=== PATIENT | female | born 1980 | race Caucasian/White ===

== ENCOUNTER 2021-10-19 13:16 | Outpatient (CLI) | payer SELFPAY ==
--- NOTE | 2021-10-19 | ECG_ITS ---
Measurements Intervals [place] Rate: 82 P: 72 MN: 148 QRS: 5 QRSD: 81 T: 33 QT: 338 QTc: 395 Interpretive Statements SINUS RHYTHM WITH SINUS ARRHYTHMIA RSR' IN V1 OR V2, PROBABLY NORMAL VARIANT BORDERLINE ECG Electronically Signed On 10-19-2021 15:33:08 CDT by Neal Martinez D.O.
[2021-10-19 17:26] LABS: Albumin Level 4.3 g/dL (3.5-5.1)
[2021-10-19 17:38] LABS: Prealbumin 23.9 mg/dL (17.6-36.0)
[2021-10-19 17:42] LABS: Iron 100 ug/dL (37-170)
== END 2021-10-19 13:17 | disposition home or self-care (01) ==
PROVIDERS: Visit Provider Surgery Plastic and Reconstructive Surgery
DX: Z01.818 Encounter for other preprocedural examination (principal); Z98.84 Bariatric surgery status; R94.31 Abnormal electrocardiogram [ECG] [EKG]
CPT/HCPCS: 36415; 82040; 83540; 84134; 93005

== ENCOUNTER 2022-02-08 00:57 | Day surgery (SDC) | payer OTHER, SELFPAY ==
[2022-02-02 10:24] VITALS: BMI 25.9
--- NOTE | 2022-02-02 10:29 | PC.NURSE ---
Report to the Outpatient Waiting Room, entrance under the green pavilion located off [facility], at time 0730 on date 02/08/22. Planned Procedure Time: 0930. Time changes happen often and if your time is changed the preop area will call you the afternoon before. - You and your visitor will be asked to self-screen and do not enter if you have any COVID symptoms. - We encourage only one visitor and NO visitors under age 16 are allowed at this time. Your visitor will receive communication by the phone number that is given day of service. - The patient visitor is requested to social distance or may leave the building when not with patient due to restrictions. - A mask is OPTIONAL within the hospital. Patients may have clear liquids (water, carbonated beverages, clear teas, apple juice) until 3 hours prior to surgery with a maximum of 20 ounces. - No food from midnight until time of surgery Take the following medications with a SIP of water the morning of surgery: LEVOTHYROXINE Medications to discontinue per physician: VITAMINS Date to take last dose: 02/04/22 Please no make-up, nail ku[place]i, hairspray, perfume, deodorant, or body powder the day of surgery. No jewelry (including any body piercings) or valuables the day of surgery, leave them at home. Please take a shower or bath the night before, or the morning of, surgery with an antibacterial soap. Wear comfortable, loose fitting clothing. - Jewelry must be removed prior to entering the operating room. Rings and piercings that are not removed may be cut off. - The hospital will not accept responsibility for valuables. - Please leave all valuables, including medications, at home the day of surgery. If you are going home after surgery, a licensed auto transport driver must drive you home. - NO public transportation without another adult. - We recommend that an adult stay with you for 24 hours following discharge. - We also recommend that you do not drive, make important decision, drink alcoholic beverages, or take any drugs that were not prescribed by your health care provider for at least 24 hours after your discharge time. Follow any additional instructions given to you from your surgeon. If you or anyone in your household have experienced Covid symptoms in the past week, please notify your surgeon or the nurse liaison at the phone number below for possible testing. Telephone instructions given to PT - AMALIA NOE and asked if any additional questions and then verbalized understanding. Patient advised to call surgeon office or pre surgery nurse liaison [phone] if any additional questions.
[2022-02-08] VITALS (10 sets, daily range): BP systolic 102–129; BP diastolic 55–89; PULSE 65–100; RESP 12–18; TEMP 36–37.2; O2SAT 96–100; BMI 27.1
[2022-02-08 07:55] LABS: Urine Cotinine NEGATIVE
[2022-02-08] MEDS: LACTATED RINGERS 1,000 ML 30 ML IV CONT ×2 (08:35→15:29)
[2022-02-08 08:52] LABS: Hematocrit 37.8 % (37.0-47.0); Hemoglobin 12.3 g/dL (12.0-15.0)
--- NOTE | 2022-02-08 09:27 | W.PM.PROC2 ---
Procedure Note - Detailed Date of Procedure 02/08/22 Pre-op Diagnosis skin laxity, breast ptosis Post-op Diagnosis Same Procedure Performed 1. Bilateral mastopexy 2. Progressive tension abdominoplasty 3. Bilateral medial thigh lift Surgeon Jonathan Caceres MD Anesthesia General Findings Breast: Inverted T, Superior pedicle mastopexy Abdomen Tissue removed 1,094 grams Thighs Lipoaspirate 1,500 cc Description of Procedure They are here today for the above. Previously and again today the risks, benefits, alternatives were discussed in extensive detail. I wanted them to be very realistic about the risks involved as well as expectations. We discussed aftercare and what to monitor for. I was very upfront about the risks of wound breakdown leading to loss of skin, open wounds, and need for additional procedures with permanent abdominal deformity. We discussed DVT/PE risks and management. Made sure answered all of their questions to their satisfaction today and consent was obtained. Marked in the preoperative holding area with their verification. The patient was taken to the operating room placed supine on the operating table. Anesthesia was provided by anesthesiology. A Raphael catheter was started. A surgical time-out was taken. She was prepped and draped in a standard sterile fashion. Thighs Stab incisions were made and I tumesced with a tumescent solution. Once adequate time for hemostasis suction lipectomy was completed based on safe technique with a 5 mm basket cannula. I completely de-fatted the central portion for planned resection and using a strip avulsion technique in a proximal to distal cut as you go fashion the intervening tissue was removed with a 10 blade and stapled into place. I closed using 2-0 Stratafix followed by 3-0 Stratafix in a running subcuticular 4-0 Monocryl. Tissue glue was placed. Breast Eleven blade was utilized to make a stab incision and infiltrated with low volume tumescent solution. The breast was tailor tacked into place. I tailor tacked the breast into position. Placed her in a sitting position. Verified the nipple-areolar location based on preoperative planning as well as intraoperative observations and measurements in full agreement. She was placed supine. I de-epithelialized the pedicle. I then de-epithelialized the inferior breast tissue to create an autoaugmentation flap based on intercostal hand box folder. I elevated medial and lateral tissue flaps as well for planned closure. The autoaugmentation flap was sutured to the chest wall with 2-0 PDS. I closed along the IMF with 2-0 Stratafix. Along the vertical with 2-0 PDS. I closed around the Emanuel with 3-0 strata fix. 3-0 Monocryl along the vertical. 3-0 Stratafix along the IMF. I finally closed everything with running subcuticular 4-0 Monocryl and tissue glue. Abdomen I placed the patient in a flexed position to verify the upper and lower markings would reach. I then placed supine. A thorough abdominal examination was completed. Stab incisions were made and tumescent solution infiltrated. A 5mm basket cannula liposuction basket cannula was utilized to provide discontinuous undermining. A 10 blade was used to make the upper incision. I continued dissection down to the level of fascia. Elevated just what was necessary for repair of the diastasis. I then again flexed the bed to verify the upper skin flap would reach the lower markings without tension. Once verified I placed her supine once again and a 10 blade used to make the lower incision. I elevated up to level the umbilicus and left the umbilicus intact on a well-vascularized stalk. The intervening tissue was removed. A 2 mm blunt cannula with 0.5% bupivicaine was injected deep to the fascia bilaterally. I plicated the diastasis recti using 0 PDO stratafix barbed suture. This was in 2 separate layers using 2 separate sutures as well. I repaired around the umbilic
--- NOTE | 2022-02-08 09:40 | WPDHPUPDATE1 ---
History and Physical Update Update Date/Time: 02/08/22 09:40 History and Physical has been reviewed, including an updated exam of the patient. There are NO changes in the patient's condition. Risks, benefits, and alternatives have been discussed and questions answered. Patient agrees to proceed with procedure.
[2022-02-08] MEDS: ceFAZolin 2 GM/D5W 50 ML 2 GM/50 ML BAG IVPB (09:45)
[2022-02-08] MEDS: TRANEXAMIC ACID 1,000MG/ISO100 1,000 MG/100 ML BAG 200 MG IVPB (09:51)
[2022-02-08] MEDS: BUPIVACAINE/EPINEPHRINE 0.25% 50 ML VIAL 60 ML INFILTRATE (11:15)
[2022-02-08] MEDS: ceFAZolin SODIUM 1 GM VIAL IV PUSH (13:43)
[2022-02-08] MEDS: LACTATED RINGERS IRRIG 1,000 ML, LIDOCAINE HCL 1% LOCAL INJ 50 ML, EPINEPHrine HCL INJ ... INFILTRATE (14:50)
[2022-02-08] MEDS: fentaNYL CITRATE INJ (*CRX) 100 MCG/2 ML VIAL 25 MCG IV PUSH ×4 (15:47→16:36)
--- NOTE | 2022-02-08 17:00 | OBPPTRN ---
1649 Patient transferred to post room #288 via bed. Support person present. Oriented to unit, room, information board, admission packet and security measures. Patient verbalizes understanding.
[2022-02-08] MEDS: ONDANSETRON INJ 4 MG/2 ML VIAL IV PUSH (17:11)
[2022-02-08] MEDS: LACTATED RINGERS 1,000 ML 125 ML IV CONT (17:11)
[2022-02-08] MEDS: ENOXAPARIN 40 MG/0.4 ML SYRINGE SUB-Q (19:49)
[2022-02-08] MEDS: oxyCODONE/ACETAMINOPHEN (*CRX) 5-325 MG TABLET PO ×2 (19:49→23:37)
[2022-02-08] MEDS: DOCUSATE SODIUM 100 MG CAPSULE PO (19:50)
[2022-02-08] MEDS: GABAPENTIN 300 MG CAPSULE PO (19:50)
[2022-02-08] MEDS: carisoprodoL (*CRX) 350 MG TABLET PO (19:50)
[2022-02-09] MEDS: carisoprodoL (*CRX) 350 MG TABLET PO ×2 (01:20→07:08)
[2022-02-09 04:30] VITALS: BP 98/58; PULSE 105; RESP 18; TEMP 37.1; O2SAT 99
[2022-02-09] MEDS: MORPHINE SULFATE (*CRX) 2 MG/ML INJ IV PUSH (04:49)
[2022-02-09] MEDS: ONDANSETRON INJ 4 MG/2 ML VIAL IV PUSH (04:54)
--- NOTE | 2022-02-09 06:42 | WPDPN ---
Progress Note: A&P Assessment and Plan (1) Skin laxity: Code(s): L57.4 - Cutis laxa senilis Status: Acute Assessment and Plan: Doing well after bilateral mastopexy, progressive tension abdominoplasty, bilateral medial thigh lift. Will monitor p.o. input over the next couple hours as well as urine output. Plan for discharge home later today once ambulating, pain controlled, tolerating diet. I will see her back. Today we had a lengthy discussion about the care. Activity limitations. What monitor for. This was again fully repeated today as has been at multiple visits. She understands with any questions or concerns to call at any time. Further we discussed what medical emergencies are and went to dial 911/proceed to the emergency room. I will see her back. (2) Breast ptosis: Code(s): N64.81 - Ptosis of breast Status: Acute (3) History of weight loss surgery: Code(s): Z98.84 - Bariatric surgery status Status: Acute (4) Exposure to phentermine: Code(s): T50.5X5A - Adverse effect of appetite depressants, initial encounter Status: Acute Assessment and Plan: Avoid use Subjective Date/time seen: 02/09/22 06:42 Interval history: She is doing very well after bilateral mastopexy, progressive tension abdominoplasty bilateral medial thigh lift. A little bit of nausea. No fevers or chills. No shortness of breath. No chest pain. No calf tenderness. She has had some to drink and her catheter has come out. She has not urinated since catheter removal. Review of Systems Review of Systems: All systems reviewed & are unremarkable except as noted in HPI and below Exam Narrative: A&O NOD Resp unlabored Bilateral breast healing well. No signs of infection. No hematoma. No seroma. Good color and capillary refill. Abdomen healing well. No signs of infection. No hematoma. No seroma. Good color and capillary refill. Bilateral medial thighs healing well. No signs of infection. No hematoma. No seroma. No calf tenderness. Negative Homans's. Objective Data Vital Signs Vital Signs: Vital Signs - 24 hr 02/08/22 07:35 02/08/22 15:29 02/08/22 15:45 Temperature 36.7 C 36.2 C L Pulse Rate 75 89 65 Respiratory Rate 16 17 12 Blood Pressure 106/55 L 111/65 111/78 Pulse Oximetry 100 100 100 Oxygen Delivery Room Air Simple Face Mask Simple Face Mask Oxygen Flow Rate 8 8 02/08/22 16:00 02/08/22 16:15 02/08/22 16:30 Temperature Pulse Rate 83 67 86 Respiratory Rate 16 12 18 Blood Pressure 113/74 126/89 118/78 Pulse Oximetry 100 98 97 Oxygen Delivery Room Air Room Air Room Air Oxygen Flow Rate 02/08/22 17:01 02/08/22 17:19 02/08/22 17:00 Temperature 36.0 C L 36.3 C L Pulse Rate 82 Respiratory Rate 16 Blood Pressure 129/88 Pulse Oximetry 96 Oxygen Delivery Room Air Oxygen Flow Rate 02/08/22 19:50 02/08/22 19:50 02/08/22 23:40 Temperature 36.6 C Pulse Rate 92 Respiratory Rate 18 Blood Pressure 122/75 Pulse Oximetry Oxygen Delivery Room Air Room Air Oxygen Flow Rate 02/08/22 23:40 02/09/22 04:30 02/09/22 04:30 Temperature 37.2 C 37.1 C Pulse Rate 100 105 H Respiratory Rate 18 18 Blood Pressure 102/60 98/58 L Pulse Oximetry 100 99 Oxygen Delivery Room Air Oxygen Flow Rate Intake/Output Intake/Output: Intake & Output 02/06/22 02/07/22 02/08/22 02/09/22 23:59 23:59 23:59 23:59 Intake Total 1050 1800 Output Total 50 950 Balance 1000 850 Meds/Results Medications: Active Medications Generic Name Dose Route Start Last Admin Trade Name Jaydon PRN Reason Stop Dose Admin Carisoprodol 350 mg 02/08/22 18:00 02/09/22 01:20 Carisoprodol (*Crx) 350 Mg Tablet PO 350 mg Q6HR DOUG Administration Diazepam 5 mg 02/08/22 15:08 Diazepam (*Crx) 5 Mg Tablet PO TID PRN Anxiety Docusate Sodium 100 mg 02/08/22 21:00 02/08/22 19:50 Docusate Sodium 1
--- NOTE | 2022-02-09 06:47 | PM.DS ---
DS: Admitting Diagnosis Discharge Date 02/09/2022 Admitting Diagnosis Skin laxity Breast ptosis History of weight loss DS: Discharge Diagnosis Discharge Diagnosis (1) Skin laxity: Code(s): L57.4 - Cutis laxa senilis Status: Acute (2) Breast ptosis: Code(s): N64.81 - Ptosis of breast Status: Acute (3) History of weight loss surgery: Code(s): Z98.84 - Bariatric surgery status Status: Acute (4) Exposure to phentermine: Code(s): T50.5X5A - Adverse effect of appetite depressants, initial encounter Status: Acute DS: Summary Hospital Course Hospital Course: She underwent bilateral mastopexy, progressive tension abdominoplasty, bilateral medial thigh lift. Postoperatively has done well. Will plan for discharge home. Time Spent with Patient Time attestation: Total time spent providing and/or coordinating discharge services: Exam Narrative: A&O NOD Resp unlabored Bilateral breast healing well. No signs of infection. No hematoma. No seroma. Good color and capillary refill. Abdomen healing well. No signs of infection. No hematoma. No seroma. Good color and capillary refill. Bilateral medial thighs healing well. No signs of infection. No hematoma. No seroma. No calf tenderness. Negative Homans's. DS: Data Data Completed and Pending Labs on day of discharge: Labs from last 24 hours 02/08/22 02/08/22 08:38 07:39 Hgb 12.3 Hct 37.8 Cotinine Negative Discharge Plan Discharge Patient Disposition: Home, Self-Care Discharge Instructions: POST OPERATIVE DISCHARGE INSTRUCTIONS JONATHAN CACERES M.D. [facility] [address] [place] [address] [address] for 24 hours after anesthesia and while you are taking pain medication. Take all prescribed medication as directed Diet as tolerated. No lifting or activity that raises blood pressure for 48 hours. Regular walking / ambulation. May shower 24 hours after surgery. Once you shower do not take pain medication before showering as the combination of medication and heat may cause you to feel dizzy or pass out. No pools or tubs for 2 weeks. Slowly stand up straight as tolerated. No straining or lifting more than 20 pounds. If no bowel movement within 24 hours may use laxative. Call with any questions or concerns. Dressing Care: Continue abdominal binder / foam, surgical bra, thigh wraps 23 hours per day. If you have any questions or concerns, please call the office . If it is after hours you will be directed to the personal injury specialist exchange. Shortness of breath, chest pain, or other medical emergency dial 911 / proceed to the Emergency Room. Stand Alone Forms: General Discharge Instructions Follow-up/Referrals: Jonathan Caceres MD [Physician] - 1 Week Discharge Medications: Continued levothyroxine 112 mcg capsule 112 mcg PO DAILY metformin 500 mg tablet 500 mg PO DAILY spironolactone 100 mg tablet 100 mg PO DAILY ondansetron 4 mg tablet,disintegrating 4 mg PO Q8H Qty: 21 0RF docusate sodium [Colace] 100 mg capsule 100 mg PO DAILY Qty: 14 0RF carisoprodol [Soma] 350 mg tablet 350 mg PO TID PRN (Reason: muscle pain) Qty: 21 0RF diazepam [Valium] 5 mg tablet 5 mg PO TID PRN (Reason: anxiety) Qty: 7 0RF oxycodone-acetaminophen [Percocet] 5-325 mg tablet 1 tablet PO Q6H PRN (Reason: pain) Qty: 30 0RF vitamin [id number] acid 500-400 mcg Tablet 1 tablet PO DAILY
[2022-02-09 07:00] VITALS: BP 107/60; PULSE 94; RESP 16; TEMP 37.4; O2SAT 96
[2022-02-09] MEDS: LEVOTHYROXINE SODIUM 112 MCG TABLET PO (07:02)
[2022-02-09] MEDS: metFORMIN HCL 500 MG TABLET PO (09:20)
[2022-02-09] MEDS: SPIRONOLACTONE 50 MG TABLET 100 MG PO (09:21)
[2022-02-09] MEDS: GABAPENTIN 300 MG CAPSULE PO (09:21)
[2022-02-09] MEDS: DOCUSATE SODIUM 100 MG CAPSULE PO (09:21)
[2022-02-09] MEDS: oxyCODONE/ACETAMINOPHEN (*CRX) 5-325 MG TABLET PO (09:21)
--- NOTE | 2022-02-09 11:42 | WPDANESPN ---
Anes - Prog Note Post-Op Date/Time: 02/09/22 11:42 Cardiovascular status: normal Respiratory status: normal Airway patency: baseline Mental status: baseline Post-Op hydration status: normal Vital Signs: Last Vital Signs Temp 37.4 C 02/09/22 07:00 Pulse 94 02/09/22 07:00 Resp 16 02/09/22 07:00 BP 107/60 02/09/22 07:00 Pulse Ox 96 02/09/22 07:00 O2 Del Method Room Air 02/09/22 07:00 O2 Flow Rate 8 02/08/22 15:45 Pain Score (VAS): 210 I/O: Intake & Output 02/08/22 02/09/22 02/09/22 23:59 07:59 15:59 Intake Total 400 1800 Output Total 50 950 200 Balance 350 850 -200 Laboratory Tests 02/08/22 08:38 Post-procedural complaints: none Patient Feedback: Patient satisfied with anesthetic care.
== END 2022-02-09 11:38 | disposition home or self-care (01) ==
LOC: ANHSURGERY 09:39 → ANHOB2 16:39
PROVIDERS: Anesthesiology; Visit Provider Surgery Plastic and Reconstructive Surgery
PROC: (CPT 19316; principal; 2022-02-08 09:30)
PROC: (CPT 15832; 2022-02-08 09:30)
PROC: (CPT 19316; 2022-02-08 09:30)
DX: Z41.1 Encounter for cosmetic surgery (principal); L57.4 Cutis laxa senilis; N64.81 Ptosis of breast; Z98.84 Bariatric surgery status; T50.5X5A Adverse effect of appetite depressants, initial encounter; Z79.84 Long term (current) use of oral hypoglycemic drugs; Z79.899 Other long term (current) drug therapy
CPT/HCPCS: 19316; 15830; 15847; 15832; 80307; 85014; 85018; 99199; A9270; J0171; J0330; J0690; J1170; J1650; J2250; J2270; J2405; J2704; J3010; J7120